=== PATIENT | female | born 1985 | race Caucasian/White ===

== ENCOUNTER 2018-09-26 08:02 | Inpatient (IN) ==
[2018-09-26] MEDS ORDERED: Lidocaine -MPF 2% 2 ML VIAL ONE (08:18)
[2018-09-26] MEDS ORDERED: *HR* Succinylcholine 200 MG/10 ML VIAL IVP ONE (08:18)
[2018-09-26] MEDS ORDERED: *HR* Propofol 200 MG/20 ML VIAL IVP ONE (08:18)
[2018-09-26] MEDS ORDERED: Ondansetron 4 MG/2 ML VIAL ONE (08:18)
[2018-09-26] MEDS ORDERED: *HR* Rocuronium Bromide 50 MG/5 ML VIAL ONE (08:18)
[2018-09-26] MEDS ORDERED: *HR* FentaNYL (PF) 100 MCG/2 ML VIAL ONE (08:18)
[2018-09-26] MEDS ORDERED: *HR* Midazolam HCl 2 MG/2 ML VIAL ONE (08:18)
[2018-09-26] MEDS ORDERED: Dexamethasone 4 MG/ML VIAL ONE (08:18)
[2018-09-26] MEDS ORDERED: Famotidine 20 MG/2 ML VIAL IVP ONE (08:47)
[2018-09-26] MEDS ORDERED: Celecoxib 100 MG CAPSULE PO ONE (08:48)
[2018-09-26] MEDS ORDERED: Acetaminophen IV 1,000 MG/100 ML INFUS..BTL IVPB ONE (08:48)
[2018-09-26] MEDS ORDERED: Pregabalin 75 MG CAPSULE PO ONE (08:48)
--- NOTE | 2018-09-26 09:03 | History & Physical Report ---
Date of Encounter: 09/26/18 Time of Encounter: 09:02 24 Hour HP Update - Instructions Instructions: If the History and Physical is less than 30 days old and was completed prior to A.M. admission and or procedure and has NOT been updated on calendar day of procedure please complete this update prior to performing procedure. - Update Patient reports changes in Medical Condition: No Changes in examination, assessment, or condition: No Changes in Medication: No Preop tests/diagnostics Reviewed: Yes Pre-Op MRSA Screen: Negative Surgery Remains Indicated: Yes Consent for Planned Operative Procedure(s) Verified: Yes - Pre-Operative Checklist Preoperative Checklist Indicated: Yes Prophylactic Antibiotic Ordered: Yes Home Medications Include Beta Rosette: No Beta Rosette Taken Today (Day of Surgery): No Beta Rosette Taken Yesterday (Day Prior to Surgery): No Is VTE Prophylaxis Indicated?: Yes
[2018-09-26] MEDS ORDERED: CeFAZolin Syr 3,000MG/30 ML 3,000 MG/30 ML SYRINGE IVPB ONE (09:04)
--- NOTE | 2018-09-26 09:14 | Anesthesia Evaluation PreOp ---
Date of Encounter: 09/26/18 Time of Encounter: 09:00 - Past History Planned Operation: MICHEL Cardiac History: Arrhythmia (SVT on metoprolol) Pulmonary History: Denies Any Significant HX PR INTERN History: Denies Any Significant HX Other Medical History: Denies Any Significant HX, Other (obese) Anesthesia History: No Prior Anesthetic Complications : No Test: Negative Alcohol Use: none Drug use: none Medications and Allergies Allergy/AdvReac Type Severity Reaction Status Date / Time Amoxicillin Allergy Hives Verified 11/28/17 20:15 ibuprofen AdvReac Nausea Verified 11/28/17 20:15 - Meds/Allergy Pre-op Review Medications Reviewed: Yes Allergies Reviewed: Yes Beta Blockers on Current Med List: Yes (Metoprolol today 0600) Anesthesia Results - Labs Laboratory Tests 11/28/17 09/12/18 09/12/18 20:19 14:00 14:00 Hgb 11.9 Hct 38.3 Plt Count 312 Sodium 136 Potassium 3.4 L BUN 10 Creatinine 0.63 Serum , Qual 09/12/18 14:00 Hgb Hct Plt Count Sodium Potassium BUN Creatinine Serum , Qual Negative Anesthesia Exam O2 Sat Height 1.73 m Height 1.73 m Weight 111.13 kg Weight 111.13 kg O2 Sat by Pulse Oximetry 99 O2 Sat by Pulse Oximetry 99 Vital Signs Temp Pulse Resp BP Pulse Ox 98.2 F 117 18 128/72 99 09/26/18 08:26 09/26/18 08:26 09/26/18 08:26 09/26/18 08:26 09/26/18 08:26 Height: 5'8 Weight: 245 lbs NPO (# of Hours): MN Pain Scale: 0 - HEENT Pupil (Motor): Pupils equal, EOMI Mallampati: II Teeth: Normal Oral Opening: Greater than 3 - PR INTERN LOC: Oriented PR INTERN Motor: Normal RUE, Normal LUE, Normal RLE, Normal LLE, Normal Face PR INTERN Sensory: Normal: RUE, LUE, RLE, LLE, Face - Cardiac Rhythm: Regular Murmur: None JVD: No Carotid Bruit: No - Pulmonary Breath Sounds: bilateral Clear Respiratory Effort: Symmetrical Anesthesia Assess/Plan ASA Score: 2 Level of consciousness: Cooperative, Oriented Anesthetic Plan: General Reason for No Neuroaxial/Regional Block: Patient refusal Autologous Blood: No Monitoring Plan: Standard Monitors Recovery Plan: PACU (Discussed GA, agrees to proceed)
[2018-09-26] MEDS ORDERED: Ringers Solution, Lactated 1,000 ML IVC SCH ×2 (09:15→11:58)
[2018-09-26] MEDS ORDERED: Ondansetron 4 MG/2 ML VIAL IVP ONE (09:16)
[2018-09-26] MEDS ORDERED: *HR* Meperidine 25 MG/ML SYRINGE IVP PRN (09:16)
[2018-09-26] MEDS ORDERED: *HR* HYDROmorphone (PF) 1 MG/ML SYRINGE IVP PRN ×2 (09:16→11:48)
[2018-09-26] MEDS ORDERED: *HR* OxyCODONE Immed Rel 5 MG TABLET PO PRN (09:59)
[2018-09-26] MEDS ORDERED: *HR* Metoprolol 5 MG/5 ML VIAL IVP ONE (10:11)
[2018-09-26] MEDS ORDERED: *HR* HYDROMORPHONE 2 MG/ML VIAL ONE (10:36)
--- NOTE | 2018-09-26 11:41 | OB/GYN Procedure Note ---
Hysterectomy - Diagnosis Hysterectomy pre-op: chronic pelvic pain Post-op diagnosis: other (endometriosis, frozen pelvis, bilateral endometriomas) - Procedure Was there an portfolio assistant present: Yes Covering Machine Tender: Jose Mcbride Anesthesia provider: Zac Sevilla Anesthesia Type: General Estimated blood loss (cc): 250 Complications: none Fluids: crystalloid Urine output (cc): 200 Specimens: right ovary, uterus, left ovary, right fallopian tube, left fallopian tube Narrative: This is Dr. Tana Fuchs EDTA and dictating operative note on a patient [place] [id number] her hospital number is [id number] [phone] preoperative di agnosis is bilateral ovarian endometriomas and pelvic pain postop diagnosis is the same plus frozen pelvis surgeon is Dr. Tana Moran assisting is Dr. Jose Rooney anesthesia is general estimated blood loss 250 mL complications are none urine output was 200 mL of clear urine. Hero is a 32-year-old multiparous female with a long history of progressively worsening pelvic pain and documented endometriosis. She underwent pelvic imaging and was diagnosed with bilateral endometriomas. At this time the endometriosis and endometriomas are severely impacting her normal disease living and she desires definitive surgery with removal of uterus and both adnexa. All the risks benefits and indications and alternatives were discussed at length preoperatively and informed consent had been obtained. Procedure hero was taken to the operating suite and after adequate general anesthesia was assured she has prepped and draped in the usual sterile fashion. A Pfannenstiel incision was created and taken down through the subcutaneous fat and fascia to The rectus muscles. The rectus muscles were divided in the midline. No cavity thinners. Without consequence to bowel or bladder. The bowel was packed away with moist laparotomy sponges. The pelvis was systematically inspected. Bilateral ovaries were markedly enlarged 7-8 cm in size with multicystic endometriomas present. The adnexa were completely adherent to the posterior cul-de-sac and to the pelvic sidewall and to the bowel. The remainder the peritoneal lining was significantly inflamed and had endometriosis distributed throughout the anterior portion of the pelvis and the uterus. At this time bilateral uterine cornua were identified they were elevated and bilateral round ligaments were clamped transected and suture ligated. The utero-ovarian pedicles were then identified they were clamped transected and suture ligated with good hemostasis. The ovaries were then very gently dissected off the surrounding peritoneum. The released from the bowel adhesions they were released gently from the sidewall excellent hemostasis was maintained throughout. The ureters were noted to be distinctly from our operative site. The infundibulopelvic ligaments were then identified the ovaries were clamped transected and suture ligated and amputated. The bladder flap was then gently released off the lower uterine segment. She did have marked scarring and endometriosis and this point. The uterine arteries were identified clamped transected and suture ligated. At this time the bowel was released from the posterior portion of the cervix the bladder was gently dissected off the anterior portion of the cervix. She has significant amount of scarring. A significant products and pelvis and the decision was made to proceed with a cervical supracervical hysterectomy. In a series a stepped the broad and cardinal ligaments were gently clamped transected and suture ligated. Curved clamps were placed in the uterine cornua and the uterine cervix was then amputated. The vaginal cuff angles were grasped. The endocervical canal was electrocautery to help prevent postoperative bleeding. Both vaginal cuff angles were secured to the ipsilateral uterosacral ligament for excellent vaginal vault support. The remainder of the vaginal cuff was closed in an her and her ruptured fashion. Copious irrigation was then performed. All of the surgical sites were inspected. Hemostasis was assured. She continued to make clear sterile urine. Weighted no evidence of trauma to the bladder bowel or ureters. She did have significant amount of adhesions which made the surgery very difficult. At the end of the procedure all the instruments were removed from the abdominal cavity. Sponge lap needle and instrument counts were all assured to be correct 2. The fascia was closed with 2 lengths of Vicryl. The subcutaneous tissue was reapproximated in interrupted fashion. The skin incision was closed in a subcuticular fashion. We had no evidence of intraoperative complications. All of the sponge lap needle and instrument counts were again correct 2. The final signout was performed with the operating room staff.
[2018-09-26] MEDS ORDERED: Ondansetron 4 MG/2 ML VIAL IVP PRN (11:48)
[2018-09-26] MEDS ORDERED: Naloxone 0.4 MG/ML INJ IVP PRN (11:48)
--- NOTE | 2018-09-26 12:39 | Anesthesia Evaluation Post Op ---
Date of Encounter: 09/26/18 Time of Encounter: 12:40 - Vital Signs Vital Signs: Vital Signs/O2 Sat/Glucose, Most Current Temp Pulse Resp BP Pulse Ox 09/26/18 12:27 74 20 95/59 95 09/26/18 12:17 53 18 98/58 99 09/26/18 12:07 98.3 F 55 15 104/57 99 09/26/18 11:57 81 16 101/55 99 09/26/18 11:47 56 16 100/56 99 09/26/18 11:37 98.6 F 77 16 103/52 98 09/26/18 09:01 98.2 F 117 18 128/72 99 - Lungs Lungs: Clear Ascult./Percussion - Airway Airway: Non-obstructed - Cardiovascular Regular Rate - Mental Status Mental Status: Alert & Oriented, Answers Appropriately - Pain Pain Scale: 2 - Nausea Vomiting Nausea Vomiting: Not Present - Hydration Hydration: Ice chips - Discharge PostOp Status: Transfer Patient to floor
[2018-09-26] MEDS: *HR* OxyCODONE/APAP 5/325 TABLET PO PRN ×2 (16:05→19:52)
[2018-09-27] MEDS: *HR* OxyCODONE/APAP 5/325 TABLET PO PRN ×5 (01:02→20:54)
[2018-09-27 06:32] LABS: Basophils % 0.1 %; Hematocrit 30.1 % (35.3-44.9); Hemoglobin 9.4 g/dL (11.5-15.4); Immature Granulocytes % 0.3 % (0-4); Lymphocytes # 1.6 K/mcL (0.6-4.6); Lymphocytes % 13.9 %; Mean Corpuscular HGB Conc 31.2 g/dL (31.6-35.5); Mean Corpuscular Volume 76.8 fL (83.0-100.0); Mean Platelet Volume 11.2 fL (9.4-12.4); Monocytes # 0.9 K/mcL (0.0-1.3); Monocytes % 8.2 %; Neutrophils # 8.8 K/mcL (1.6-8.9); Platelet Count 247 K/mcL (140-400); Red Blood Count 3.92 M/mcL (3.82-4.97); Red Cell Distribution Width 15.7 % (11.5-14.5); Segmented Neutrophils % 77.5 %
--- NOTE | 2018-09-27 08:42 | OB/GYN Progress Note ---
Date of Encounter: 09/27/18 Time of Encounter: 08:40 - Assessment and Plan (1) S/P abdominal hysterectomy Current Visit: Yes Status: Acute 32yo female POD#1 from MICHEL/BSO for bilateral endometriomas and significant adhesive disease 2/2 endometriosis. 1. Postoperative management - pain controlled with po regimen - diet: tolerating regular diet without n/v/d; not yet passing flatus - zarco removed overnight, voiding independently - ambulating independently with SCDs on and in place at bedside - infection ppx: IS at bedside and s/p completion of intraoperative ancef Dispo: Patient to pass flatus and continue with ambulation. Plan to remove dressing and DC to home on POD#2. MD STEFANIA Subjective - Subjective Principal diagnosis: Postoperative MICHEL Interval history: 32yo female s/p MICHEL/BSO, POD#1. Doing well this AM. Ambulating independently ,tolerating regular diet, and voiding independently. NOt yet passing flatus. Pain controlled with PO regimen. at bedside. Denies fevers/chills/n/v/d. Patient reports: appetite normal, voiding normally, pain well controlled, ambulating normally Objective - Vital Signs Latest vital signs: Vital Signs Temp Pulse Resp BP Pulse Ox 09/27/18 05:30 98.0 F 80 16 115/76 100 09/27/18 00:30 98.1 F 106 14 116/65 98 09/26/18 20:40 97.9 F 82 14 116/76 98 09/26/18 16:00 98.8 F 78 16 96/60 99 09/26/18 15:00 97.7 F 89 12 107/71 98 09/26/18 13:26 98.4 F 73 14 110/74 95 09/26/18 13:00 97.6 F 86 12 98/64 96 09/26/18 12:37 97.5 F L 69 16 94/50 95 09/26/18 12:27 74 20 95/59 95 09/26/18 12:17 53 18 98/58 99 09/26/18 12:07 98.3 F 55 15 104/57 99 09/26/18 11:57 81 16 101/55 99 09/26/18 11:47 56 16 100/56 99 09/26/18 11:37 98.6 F 77 16 103/52 98 09/26/18 09:01 98.2 F 117 18 128/72 99 Intake and Output 09/26/18 09/27/18 09/27/18 23:59 07:59 15:59 Intake Total 100 / 100 240 / 240 Output Total 325 / 325 825 / 825 Balance -225 / -225 -585 / -585 Intake: IV Fluids 100 / 100 Ancef 2,000 MG In 0.9 % Sodium 100 / 100 Chloride 100 ML @ 200 mls/hr IVPB Q8H [facility] Rx#:[id number] Oral 240 / 240 Output: Urine 300 / 300 Catheter 325 / 325 525 / 525 Other: Weight 110.223 kg Patient Weight 09/27/18 23:59 Weight 110.223 kg - I&O's I&O's: Intake & Output 09/24/18 09/25/18 09/26/18 09/27/18 23:59 23:59 23:59 23:59 Intake Total 100 / 100 240 / 240 Output Total 775 / 775 825 / 825 Balance -675 / -675 -585 / -585 Weight 111.13 kg 110.223 kg - Exam Lungs: bilateral: normal Extremities: Present: normal Abdomen: Present: normal appearance, soft, gravid Incision OB: Present: normal, dry, dressed Comments: plan to remove dressing on POD#2. No shadowing. incision closed by suture. - Labs Labs: Abnormal lab results WBC 11.3 K/mcL (4.3-11.1) H 09/27/18 06:06 Hgb 9.4 g/dL (11.5-15.4) L 09/27/18 06:06 Hct 30.1 % (35.3-44.9) L 09/27/18 06:06 MCV 76.8 fL (83.0-100.0) L 09/27/18 06:06 MCH 24.0 pg (28.0-33.3) L 09/27/18 06:06 MCHC 31.2 g/dL (31.6-35.5) L 09/27/18 06:06 RDW 15.7 % (11.5-14.5) H 09/27/18 06:06 Consult Discharge Plan - Plan Referrals: Fermín Nevarez DO [Primary Care Provider] -
[2018-09-28] MEDS: *HR* OxyCODONE/APAP 5/325 TABLET PO PRN (05:50)
--- NOTE | 2018-09-28 08:45 | Discharge Summary ---
Date of Encounter: 09/28/18 Time of Encounter: 08:40 - Discharge Diagnosis (1) S/P abdominal hysterectomy Priority: Primary Status: Acute Comments: POD#2 from MICHEL/BSO for severe endometriosis and bilateral endometriomas. Marybeth whitehead was meeting all milestones for discharge to home on 09/28/2018. Scheduled to see Dr. Moran for postoperative follow up in 4 weeks. MD STEFANIA - Discharge Medications Prescriptions: Oxycodone HCl 5 mg PO Q6HR 7 Days #20 tablet Home Medications: Metoprolol Succinate [Toprol Xl] 25 mg PO DAILY 09/26/18 [History] Norethindrone-E.estradiol-Iron [Lo Loestrin Fe 1-10 Tablet] 1 tab PO DAILY 09/26/18 [History] Oxycodone HCl 5 mg PO Q6HR 7 Days #20 tablet 09/28/18 [Rx] Allergies/Adverse Reactions: Allergy/AdvReac Type Severity Reaction Status Date / Time Amoxicillin Allergy Hives Verified 09/26/18 09:33 ibuprofen AdvReac See Verified 09/26/18 09:33 Comments Data Procedures and tests throughout hospitalization: Laboratory Tests 09/26/18 09/27/18 08:25 06:06 WBC 11.3 H RBC 3.92 Hgb 9.4 L Hct 30.1 L MCV 76.8 L MCH 24.0 L MCHC 31.2 L RDW 15.7 H Plt Count 247 MPV 11.2 Immature Gran % 0.3 Seg Neutrophils % 77.5 Lymphocytes % 13.9 Monocytes % 8.2 Eosinophils % 0.0 Basophils % 0.1 Neutrophils # 8.8 Lymphocytes # 1.6 Monocytes # 0.9 Eosinophils # 0.0 Basophils # 0.0 POC Urine HCG, Qual Negative Date of admission: 09/26/18 12:56 Primary care physician: Fermín Nevarez DO Discharging clinician: Kadie Garcia Anticipated date of discharge: 09/28/18 - Patient Status Disposition: Home, Self-Care Condition: Good Functional capacity at discharge: independent ambulation Overall status at discharge: patient is progressing back to baseline - Discharge Instructions Follow Up With: Fermín Nevarez DO [Primary Care Provider] - - Diet and Activity Activity: resume usual activities as tolerated Diet: advance to your usual diet Hospital Course YARDAGE ESTIMATOR Discharge diagnosis: pelvic pain Time spent discussing smoking cessation with patient: 3 to 10 minutes Time Attestation: Total time spent providing and/or coordinating discharge services: Exam - Constitutional Vitals: Temp Pulse Resp BP Pulse Ox 98.1 F 96 16 125/79 97 09/28/18 05:55 09/28/18 05:55 09/28/18 05:55 09/28/18 05:55 09/28/18 05:55 General appearance IM: A&O X 0 - Respiratory Respiratory exam: Present: CTAB - Cardiovascular Cardiovascular exam IM: Present: RRR - GI/Abdominal GI/Abdominal exam IM: normal bowel sounds Incision: normal, dry, intact - External exam: ecchymosis, normal external exam, swelling - Extremities Exam Extremities exam IM: Present: normal capillary refill - Neurological Exam Neurological exam: CN II-XII intact - VTE Reasons for not Prescribing Prophylaxis: Treatment not Indicated - Low risk for VTE Documentation of Mechanical Device: Intermittent pneumatic compression device
[2018-09-28 08:50] VITALS: BP 121/78
== END 2018-09-28 09:41 | disposition home or self-care (01) | DRG 743 ==
LOC: SAMDAY 08:02 → 1NENUOBS 12:56
PROVIDERS: ADMIT Obstetrics & Gynecology; ATTEND Obstetrics & Gynecology